=== PATIENT | male | born 1990 | race Caucasian/White ===

== ENCOUNTER 2017-01-12 06:06 | Emergency (ER) | payer SELFPAY ==
[~2017-01-12] VITALS: Ht 177.8 cm; Wt 70.3 kg
[2017-01-12] MEDS ORDERED: MORPHINE SULFATE 4 MG/ML DISP.SYRIN. IV/SQ PRN (06:30)
[2017-01-12] MEDS ORDERED: IV NORMAL SALINE 1000ML BAG 1,000 ML IV SCH (06:30)
[2017-01-12] MEDS ORDERED: ONDANSETRON PF 4 MG/2 ML VIAL. IV ONE (06:30)
[2017-01-12 06:33] LABS: BASO # 0.1 x10^3/uL (0.0-0.2); BASO % 1 % (0-3); EOS % 2 % (0-3); HEMATOCRIT 43.9 % (39.0-53.0); HEMOGLOBIN 14.6 g/dL (13.0-17.5); LYMPH # 1.7 x10^3/uL (1.0-4.8); LYMPH % 11 % (24-48); MEAN CORPUSCULAR HEMOGLOBIN 29 pg (25-35); MEAN CORPUSCULAR HGB CONC 33 g/dL (31-37); MEAN CORPUSCULAR VOLUME 87 fL (79-100); MONO % 7 % (0-9); NEUT % 79 % (31-73); PLATELET COUNT 284 x10^3/uL (140-400); RED BLOOD COUNT 5.03 x10^6/uL (4.30-5.70); RED CELL DISTRIBUTION WIDTH 12.9 % (11.5-14.5); WHITE BLOOD COUNT 15.4 x10^3/uL (4.0-11.0)
--- NOTE | 2017-01-12 06:38 | PHYS DOC ---
Adult General Chief Complaint Chief Complaint: FLANK PAIN HPI HPI Patient is a 26 year old male who presents with right flank pain. It started around midnight. He states is a dull aching pain and it gets up to a 7 out of 10 at times. He states it woke him up at midnight lasted for about 3 hours and went away for a few minutes and came back. He currently rates his pain at 5 out of 10. He points to his right flank states that's where it hurts. He did vomit once nonbilious nonbloody vomit. He has not had any diarrhea or constipation. He states he has a history kidney stones with a voice but on the left. His first one was in 2012 and then last year was his second one. He states the pain for his left-sided kidney stones was much worse than this one. He denies any periumbilical pain, testicular pain or right lower quadrant pain. He states the pain is in his flank and points to his right CVA area and states it has not been radiating. Denies any past surgical history denies any medications and denies any allergies to medications. Review of Systems Review of Systems Constitutional: Denies fever or chills [] Eyes: Denies change in visual acuity, redness, or eye pain [] HENT: Denies nasal congestion or sore throat [] Respiratory: Denies cough or shortness of breath [] Cardiovascular: No additional information not addressed in HPI [] GI: Nausea for right sided flank pain, nausea, vomiting,Denies bloody stools or diarrhea [] : Denies dysuria or hematuria [] Musculoskeletal: Denies back pain or joint pain [] Integument: Denies rash or skin lesions [] Neurologic: Denies headache, focal weakness or sensory changes [] Endocrine: Denies polyuria or polydipsia [] All other systems were reviewed and found to be within normal limits, except as documented in this note. Current Medications Current Medications Current Medications Medications (Trade) Dose Ordered Sig/Carey Start Time Stop Time Status Last Admin Dose Admin Ketorolac Tromethamine (Toradol) 30 mg 1X ONCE 01/12/17 09:00 01/12/17 09:01 DC Morphine Sulfate 4 mg PRN Q15MIN PRN 01/12/17 06:30 01/13/17 06:29 01/12/17 06:44 4 MG Ondansetron HCl (Zofran) 4 mg 1X ONCE 01/12/17 06:30 01/12/17 06:31 DC 01/12/17 06:43 4 MG Sodium Chloride 1,000 ml @ 1,000 mls/hr Q1H 01/12/17 06:30 01/12/17 07:29 DC 01/12/17 06:43 1,000 MLS/HR Tamsulosin HCl (Flomax) 0.4 mg 1X ONCE 01/12/17 09:00 01/12/17 09:01 DC Allergies Allergies Allergies Coded Allergies Type Severity Reaction Last Updated Verified No Known Drug Allergies 01/12/17 No Physical Exam Physical Exam Constitutional: Well developed, well nourished, no acute distress, non-toxic appearance. [] HENT: Normocephalic, atraumatic, bilateral external ears normal, oropharynx moist, no oral exudates, nose normal. [] Eyes: PERRLA, EOMI, conjunctiva normal, no discharge. [] Neck: Normal range of motion, no tenderness, supple, no stridor. [] Cardiovascular:Heart rate regular rhythm, no murmur [] Lungs & Thorax: Bilateral breath sounds clear to auscultation [] Abdomen/genital: Bowel sounds normal, soft, no tenderness throughout his abdomen , no masses, no pulsatile masses. Testes nontender bilaterally, right CVA tenderness Skin: Warm, dry, no erythema, no rash. [] Back: No tenderness, no CVA tenderness. [] Extremities: No tenderness, no cyanosis, no clubbing, ROM intact, no edema. [] Neurologic: Alert and oriented X 3, normal motor function, normal sensory function, no focal deficits noted. [] Psychologic: Affect normal, judgement normal, mood normal. [] Current Patient Data Vital Signs Vital Signs Date Time Temp Pulse Resp B/P (MAP) Pulse Ox O2 Delivery O2 Flow Rate FiO2 01/12/17 06:49 62 16 121/60 (80) 99 01/12/17 06:44 Room Air 01/12/17 06:22 98.4 98.4 Lab Values Laboratory Tests Test 01/12/17 06:20 01/12/17 07:10 White Blood Count 15.4 x10^3/uL (4.0-11.0) H Red Blood Count 5.03 x10^6/uL (4.30-5.70) Hemoglobin 14.6 g/dL (13.0-17.5) Hematocrit 43.9 % (39.0-53.0) Mean Corpuscular Volume 87 fL (79-100) Mean Corpuscular Hemoglobin 29 pg (25-35) Mean Corpuscular Hemoglobin Concent 33 g/dL (31-37) Red Cell Distribution Width 12.9 % (11.5-14.5) Platelet Count 284 x10^3/uL (140-400) Neutrophils (%) (Auto) 79 % (31-73) H Lymphocytes (%) (Auto) 11 % (24-48) L Monocytes (%) (Auto) 7 % (0-9) Eosinophils (%) (Auto) 2 % (0-3) Basophils (%) (Auto) 1 % (0-3) Neutrophils # (Auto) 12.2 x10^3uL (1.8-7.7) H Lymphocytes # (Auto) 1.7 x10^3/uL (1.0-4.8) Monocytes # (Auto) 1.1 x10^3/uL (0.0-1.1) Eosinophils # (Auto) 0.4 x10^3/uL (0.0-0.7) Basophils # (Auto) 0.1 x10^3/uL (0.0-0.2) Prothrombin Time 12.7 SEC (11.7-14.0) Prothrombin Time INR 1.0 (0.8-1.1) PTT 26 SEC (24-38) Sodium Level 142 mmol/L (136-145) Potassium Level 4.2 mmol/L (3.5-5.1) Chloride Level 105 mmol/L (98-107) Carbon Dioxide Level 29 mmol/L (21-32) Anion Gap 8 (6-14) Blood Urea Nitrogen 18 mg/dL (8-26) Creatinine 1.1 mg/dL (0.7-1.3) Estimated GFR (Cockcroft-Gault) 80.9 BUN/Creatinine Ratio 16 (6-20) Glucose Level 109 mg/dL (70-99) H Calcium Level 9.2 mg/dL (8.5-10.1) Total Bilirubin 0.3 mg/dL (0.2-1.0) Aspartate Amino Transferase (AST) 13 U/L (15-37) L Alanine Aminotransferase (ALT) 23 U/L (16-63) Alkaline Phosphatase 52 U/L (46-116) Creatine Kinase 65 U/L (39-308) Creatine Kinase MB (Mass) < 0.5 ng/mL (0.0-3.6) Creatine Kinase MB Relative Index % (0-4) Total Protein 7.6 g/dL (6.4-8.2) Albumin 4.1 g/dL (3.4-5.0) Albumin/Globulin Ratio 1.2 (1.0-1.7) Lipase 109 U/L (73-393) Urine Collection Type Unknown Urine Color Yellow Urine Clarity Cloudy Urine pH 6.5 Urine Specific [place] 1.025 Urine Protein Negative mg/dL (NEG-TRACE) Urine Glucose (UA) Negative mg/dL (NEG) Urine Ketones (Stick) Negative mg/dL (NEG) Urine Blood Large (NEG) Urine Nitrite Negative (NEG) Urine Bilirubin Negative (NEG) Urine Urobilinogen Dipstick 0.2 mg/dL (0.2 mg/dL) Urine Leukocyte Esterase Negative (NEG) Urine RBC >40 /HPF (0-2) Urine WBC 0 /HPF (0-4) Urine Squamous Epithelial Cells None /LPF Urine Bacteria 0 /HPF (0-FEW) Urine Mucus Slight /LPF Urine Opiates Screen Pos (NEG) Urine Methadone Screen Neg (NEG) Urine Barbiturates Neg (NEG) Urine Phencyclidine Screen Neg (NEG) Urine Amphetamine/Methamphetamine Neg (NEG) Urine Benzodiazepines Screen Neg (NEG) Urine Cocaine Screen Neg (NEG) Urine Cannabinoids Screen Neg (NEG) Urine Ethyl Alcohol Neg (NEG) Laboratory Tests 01/12/17 06:20 Laboratory Tests 01/12/17 06:20 EKG EKG [] Radiology/Procedures Radiology/Procedures [facility] [address] [place], [place] [id number] IMAGING REPORT Signed PATIENT: STEVEN ANSARI ACCOUNT: [id number] : 1990 LOCATION: ER AGE: 26 SEX: M EXAM STATUS: REG ER ORD. PHYSICIAN: YEHUDA VELASCO MD REASON: right flank pain ,stone protocol PROCEDURE: CT ABDOMEN PELVIS WO CONTRAST CT of the abdomen and pelvis without contrast 01/12/2017 Indication: Right flank pain. History of renal stones. Comparison study: None available. Technique: Multidetector CT imaging of the abdomen and pelvis was performed without the administration of IV contrast. Findings: Visualized lung bases demonstrate no acute abnormality. Liver, spleen, and adrenal glands demonstrate no acute abnormality. Gallbladder is relatively decompressed but appears to be otherwise grossly unremarkable. There is a 4 mm nonobstructing stone in the inferior pole the left kidney. The left ureter is normal in course and caliber. There is mild right-sided hydronephrosis this occipital right ureter just beyond the UPJ. Is secondary to a 3 mm stone. There is a punctate nonobstructing stone in the mid right kidney. The more distal ureter is normal in course and caliber. The bladder wall diffusely thickened, which may be due to incomplete distention. A component of cystitis cannot be completely excluded. There is no evidence of bowel obstruction. No evidence of acute inflammatory change involving the bowel is identified. Patient's bowel situated in a configuration suggesting malrotation. This is most likely chronic in etiology though no comparison is available for review. No free fluid or free air seen in the abdomen or pelvis. No acute osseous changes are identified. Impression: 1.3 mm stone in the proximal most right ureter consistent with mild right hydronephrosis 2. Punctate nonobstructing stone mid right kidney. Millimeters nonobstructing stone inferior pole left kidney 3. Likely chronic malrotation PQRS Compliance Statement: One or more of the following individualized dose reduction techniques were utilized for this examination: 1. Automated exposure control 2. Adjustment of the mA and/or kV according to patient size 3. Use of iterative reconstruction technique DICTATED and SIGNED BY: ALTAGRACIA PRITCHARD MD DATE: 01/12/17 0843 CC: YEHUDA VELASCO MD; NO PCP ~ Impressions: Right obstructing kidney stone Course & Med Decision Making Course & Med Decision Making Pertinent Labs and Imaging studies reviewed. (See chart for details) Noncontrast CT scan confirms right-sided 1.3 mm kidney stone with mild [place]. Labs, vitals nonacute. Patient's pains control. He received IV fluids, Toradol, Flomax, Zofran and being discharged home with Zofran, Flomax, [place]. He's follow -up with urology. Return precautions given. He is agreeable to the plan and being discharged in stable condition at this time with a strainer. Sidney Disclaimer Sidney Disclaimer This electronic medical record was generated, in whole or in part, using a voice recognition dictation system. Departure Departure Impression: Primary Impression: Kidney stone on right side Disposition: 01 HOME, SELF-CARE Condition: STABLE Referrals: NO PCP (PCP) Patient Instructions: Kidney Stones Additional Instructions: You have a kidney stone on the right side that is causing her pain and discomfort. Your being discharged home. You will need to take Flomax as instructed. You will need to follow-up with [facility] urology group. They' re located [address] [place] [address] [place] [address]. Please call their office at [phone] and schedule follow-up appointment with them for the next 2-3 days. You can use [place], which is a pain medicine, as needed. Please don't drive while taking this medicine, as it can impair your judgment and/or make you sleepy, in addition you should not drink alcohol while taking this medicine. He also being discharged with Zofran which is a medicine for nausea. Please follow the instructions on the prescription. You should drink to 2-3 extra glasses of water during the day to help the stone pass. Return back to ER if you have severe pain, uncontrolled nausea vomiting, or other concerns. You will need to use a strainer to catch the stone. Scripts Hydrocodone/Apap 5-325 (NORCO 5-325 TABLET) 1 Each Tablet 1-2 TAB PO PRN Q6HRS Y for PAIN, #15 TAB 0 Refills Prov: YEHUDA VELASCO MD 01/12/17 Ondansetron (ZOFRAN ODT) 4 Mg Tab.rapdis 1 TAB SL Q8HRS Y for NAUSEA/VOMITING, #10 TAB Prov: YEHUDA VELASCO MD 01/12/17 Tamsulosin Hcl (FLOMAX) 0.4 Mg Cap.er.24h 0.4 MG PO DAILY, #15 TAB Prov: YEHUDA VELASCO MD 01/12/17 YEHUDA VELASCO MD Jan 12, 2017 06:38
[2017-01-12 06:43] LABS: CALCIUM 9.2 mg/dL (8.5-10.1); CREATININE 1.1 mg/dL (0.7-1.3); GFR 80.9; POTASSIUM 4.2 mmol/L (3.5-5.1)
[2017-01-12 06:46] LABS: PROTHROMBIN TIME PATIENT 12.7 SEC (11.7-14.0)
[2017-01-12 06:50] LABS: ALBUMIN 4.1 g/dL (3.4-5.0); ALBUMIN/GLOBULIN RATIO 1.2 (1.0-1.7); TOTAL BILIRUBIN 0.3 mg/dL (0.2-1.0); TOTAL PROTEIN 7.6 g/dL (6.4-8.2)
[2017-01-12 07:02] LABS: CKMB MASS < 0.5 ng/mL (0.0-3.6); CREATINE KINASE 65 U/L (39-308)
[2017-01-12 07:52] LABS: BILIRUBIN,URINE NEGATIVE (NEG); GLUCOSE,URINE NEGATIVE (NEG); NITRITE,URINE NEGATIVE (NEG); PH,URINE 6.5; PROTEIN,URINE NEGATIVE (NEG-TRACE); UROBILINOGEN,URINE 0.2 mg/dL (0.2 mg/dL)
[2017-01-12 07:57] LABS: BARBITURATES NEG (NEG); BENZODIAZEPINES NEG (NEG); CANNABINOIDS NEG (NEG); COCAINE NEG (NEG); METHADONE NEG (NEG); OPIATES POS (NEG); PHENCYCLIDINE NEG (NEG)
[2017-01-12 08:00] VITALS: BP 117/67
[2017-01-12 08:03] LABS: BACTERIA,URINE 0 /HPF (0-FEW); RBC,URINE >40 /HPF (0-2); WBC,URINE 0 /HPF (0-4)
--- NOTE | 2017-01-12 08:54 | RAD ---
CT of the abdomen and pelvis without contrast 01/12/2017 Indication: Right flank pain. History of renal stones. Comparison study: None available. Technique: Multidetector CT imaging of the abdomen and pelvis was performed without the administration of IV contrast. Findings: Visualized lung bases demonstrate no acute abnormality. Liver, spleen, and adrenal glands demonstrate no acute abnormality. Gallbladder is relatively decompressed but appears to be otherwise grossly unremarkable. There is a 4 mm nonobstructing stone in the inferior pole the left kidney. The left ureter is normal in course and caliber. There is mild right-sided hydronephrosis this occipital right ureter just beyond the UPJ. Is secondary to a 3 mm stone. There is a punctate nonobstructing stone in the mid right kidney. The more distal ureter is normal in course and caliber. The bladder wall diffusely thickened, which may be due to incomplete distention. A component of cystitis cannot be completely excluded. There is no evidence of bowel obstruction. No evidence of acute inflammatory change involving the bowel is identified. Patient's bowel situated in a configuration suggesting malrotation. This is most likely chronic in etiology though no comparison is available for review. No free fluid or free air seen in the abdomen or pelvis. No acute osseous changes are identified. Impression: 1.3 mm stone in the proximal most right ureter consistent with mild right hydronephrosis 2. Punctate nonobstructing stone mid right kidney. Millimeters nonobstructing stone inferior pole left kidney 3. Likely chronic malrotation PQRS Compliance Statement: One or more of the following individualized dose reduction techniques were utilized for this examination: 1. Automated exposure control 2. Adjustment of the mA and/or kV according to patient size 3. Use of iterative reconstruction technique
[2017-01-12] MEDS ORDERED: KETOROLAC 30 MG/ML INJ. IV ONE (09:00)
[2017-01-12] MEDS ORDERED: TAMSULOSIN 0.4 MG CAP.ER.24H. PO ONE (09:00)
[2017-01-12] MEDS ORDERED: TAMS0.4C97 PO (09:07)
[2017-01-12] MEDS ORDERED: ONDA4TAB10 SL (09:07)
[2017-01-12] MEDS ORDERED: HYDR-971 PO (09:07)
== END 2017-01-12 09:19 | disposition home or self-care (01) ==
LOC: ER 06:06
DX: N20.0 Calculus of kidney (principal)
CPT/HCPCS: 36415; 74176; 80053; 80307; 81001; 82553; 83690; 85025; 85610; 85730; 96361; 96374; 96375; 99285; J1885; J2270; J2405; J7030; G0479